=== PATIENT | male | born 1980 | race African-American/Black ===

== ENCOUNTER 2020-07-02 15:21 | Inpatient (IN) | payer OTHER ==
[~2020-07-02] VITALS: Ht 190.5 cm; Wt 145.6 kg
[2020-07-02] MEDS ORDERED: IV NS 0.9% 1,000 ML BAG IV ONE (15:30)
--- NOTE | 2020-07-02 15:30 | NUR ---
BIB [facility] C/O FEELING DIZZY AND L ARM NUMBNESS 30MIN, PATIENT A/OX4, BREATHING EVEN AND UNLABORED, STILL FEELING DIZZY, NUMBNESS AND TINGLING ON LEFT ARM. CHANGED INTO GOWN, ATTACHED TO THE BOATWRIGHT. NEEDS ATTENDED. DR. MONTANO AT BEDSIDE FOR EVAL.
[2020-07-02 15:44] LABS: BASOPHILS # (AUTO) 0.1 /CMM (0.0-0.2); EOSINOPHILS % (AUTO) 5.5 % (0.0-6.0); HEMATOCRIT 45 % (39-51); HEMOGLOBIN 14.7 g/dL (13.5-17.5); LYMPHOCYTES # (AUTO) 2.7 /CMM (0.8-4.8); LYMPHOCYTES % (AUTO) 39.6 % (20.0-44.0); MEAN CORPUSCULAR HGB CONC 33 g/dl (31.0-36.0); MEAN CORPUSCULAR VOLUME 93 fL (80-96); MONOCYTES # (AUTO) 0.7 /CMM (0.1-1.30); MONOCYTES % (AUTO) 9.7 % (2.0-12.0); NEUTROPHILS % (AUTO) 44.2 % (43.0-81.0); PLATELET COUNT (AUTO) 205 /CMM (150-450); RED BLOOD CELL COUNT(AUTO) 4.86 MIL/uL (4.5-6.0); WHITE BLOOD COUNT (AUTO) 6.9 K/uL (4.3-11.0)
--- NOTE | 2020-07-02 15:50 | NUR ---
PATIENT TRANSFERRED TO CT SCAN.
[2020-07-02 16:00] LABS: CALCIUM, SERUM 8.6 mg/dL (8.5-10.1); CREATININE 1.2 mg/dL (0.6-1.3); POTASSIUM 4.2 mmol/L (3.5-5.1)
[2020-07-02 16:12] LABS: ALBUMIN 3.7 g/dL (3.4-5.0); BILIRUBIN,DIRECT 0.1 mg/dL (0.0-0.2); BILIRUBIN,TOTAL 0.3 mg/dL (0.2-1.0); TOTAL PROTEIN, SERUM 7.6 g/dL (6.4-8.2)
--- NOTE | 2020-07-02 16:33 | NUR ---
PATIENT RESTING NO DISTRESS NOTED. VITALS STABLE.
[2020-07-02] MEDS ORDERED: METO25TA4 PO (18:23)
[2020-07-02] MEDS ORDERED: ATOR40TA PO (18:23)
[2020-07-02] MEDS ORDERED: LISI-603 PO (18:23)
[2020-07-02] MEDS ORDERED: ISOS30TA6 PO (18:23)
[2020-07-02] MEDS ORDERED: CLOP75TA15 PO (18:23)
[2020-07-02] MEDS ORDERED: ASPIRIN 81 MG TAB.CHEW PO ONE (19:00)
[2020-07-02] MEDS ORDERED: ASPIRIN 81 MG TAB.CHEW ONE (19:01)
--- NOTE | 2020-07-02 19:10 | NUR ---
ENDORSED TO ODETTE MOFFETT FOR SHERRI.
--- NOTE | 2020-07-02 19:16 | NUR ---
CALLED [facility], PAGED THEO DAY DNP
--- NOTE | 2020-07-02 19:42 | NUR ---
COVID SWAB SENT
[2020-07-02 20:07] LABS: CHOLESTEROL 147 mg/dL (<200); HDL CHOLESTEROL 51 mg/dL (40-60); LDL 80 mg/dL (0-99); TRIGLYCERIDES 90 mg/dL (30-150)
--- NOTE | 2020-07-02 21:23 | NUR ---
REPORT GIVEN TO MITCHEL MOFFETT FOR SHERRI PT WILL BE TRANSPORTED TO 3RD FLOOR
[2020-07-02 21:30] VITALS: BP 136/82
--- NOTE | 2020-07-02 21:30 | NUR ---
TOOL RENTAL TECHNICIAN ADMISSION OPENING NOTES RECEIVED PATIENT FROM ER AWAKE ALERT AND ORIENTED X4, RESPIRATIONS EVEN AND UNLABORED WITH EQUAL RISE AND FALL OF CHEST, STATE HE HAS ABD DISCOMFORT "LIKE GAS" AND IS REQUESTING FOR FOOD. IV SITE TO LEFT AC #18G INTACT AND PATENT, NO REDNESS NO INFILTRATION PRESENT, VS WNL, ON INFORMATION TECHNOLOGY TEACHER NOTED SB 55. PT STATES HE DOES NOT HAVE ANY WOUNDS OR SKIN ISSUES AND STAYED IN PERSONAL CLOTHES, BELONGINGS LIST DONE, PATIENT OFFERED SAFE FOR [employer] WALLET AND 10$ PREFERS TO KEEP WITH HIM, ORIENTED TO STAFF AND CALL LIGHT AND KEPT WITHIN REACH,SAFETY PRECAUTIONS RENDERED, LOW BED AND LOCKED, ALL NEEDS ATTENDED AT THIS TIME, WILL CONTINUE TO MONITOR AND AWAIT FOR MD ORDERS.
[2020-07-02 21:35] VITALS: BP 136/82
--- NOTE | 2020-07-02 22:19 | NUR ---
MEDIA PRODUCTION MANAGER NOTES MADE DR THEO DAY AWARE OF PATIENT C/O GAS ABD DISCOMFORT AND WANTS TO EAT, RECEIVED NEW ORDERS FOR SIMETHICONE 180MG TID PO AND CARDIAC DIET, READ BACK AND CARRIED OUT. SNACKS GIVEN TO PATIENT REQUESTED.FLUIDS OFFERED.
[2020-07-02] MEDS ORDERED: SIMETHICONE 80 MG TAB.CHEW PO SCH (22:30)
--- NOTE | 2020-07-02 22:45 | NUR ---
DIRECTOR OF MARKET INTELLIGENCE NOTES MADE MD AWARE MED RECON IS IN AND NEED SIMETHICONE CLARIFICATION DOSE, AWAITING ADMISSION ORDERS. AWAITING RESPONSE.
[2020-07-03] VITALS: BP 125/61
--- NOTE | 2020-07-03 00:10 | NUR ---
OPERATIONS GENERAL AGENT NOTES PATIENT APPEARS COMFORTABLE IS SLEEPING, TOLERATED SNACKS WELL.
[2020-07-03] MEDS ORDERED: ACETAMINOPHEN 325 MG TABLET PO PRN (01:00)
[2020-07-03] MEDS ORDERED: HYDROCODONE/APAP 5/325MG TABLET PO PRN (01:00)
[2020-07-03] MEDS ORDERED: ZOLPIDEM TARTRATE 5 MG TABLET PO PRN (01:00)
[2020-07-03] MEDS ORDERED: MAGNESIUM HYDROXIDE 30 ML UDC PO PRN (01:00)
[2020-07-03] MEDS ORDERED: MAG HYDROX/AL HYDROX/SIMETH 30 ML UDC PO PRN (01:00)
[2020-07-03] MEDS ORDERED: Z GUARD REMEDY 2 OZ OINT TP PRN (01:00)
[2020-07-03] MEDS ORDERED: ONDANSETRON HCL/PF 4 MG/2 ML VIAL IVP PRN (01:00)
[2020-07-03] MEDS: IV NS 0.9% 1,000 ML IV PRN (01:24)
--- NOTE | 2020-07-03 01:50 | NUR ---
made hospitalist aware of resulted troponin 0.044. no new orders,pt remains stable
[2020-07-03 04:00] VITALS: BP 132/87
[2020-07-03 04:31] VITALS: BP 132/87
--- NOTE | 2020-07-03 06:59 | NUR ---
FLYING I INSTRUCTOR CLOSING NOTES PATIENT AWAKE ALERT AND ORIENTED X4, RESPIRATIONS EVEN AND UNLABORED WITH EQUAL RISE AND FALL OF CHEST, IV SITE TO LEFT AC #18G INTACT AND PATENT, NO REDNESS NO INFILTRATION PRESENT, IVF RUNNING ORDERED VS WNL, ON SHIRT SEWER NOTED SB 55 AND SR 62 WITH OCCASIONAL PVC'S. PT STATES HE DOES NOT HAVE ANY WOUNDS OR SKIN ISSUES AND STAYED IN PERSONAL CLOTHES,PREFERS TO KEEP WALLET WITH HIM, CALL LIGHT KEPT WITHIN REACH,SAFETY PRECAUTIONS RENDERED, LOW BED AND LOCKED, ALL NEEDS ATTENDED AT THIS TIME, WILL CONTINUE TO MONITOR AND ENDORSE TO NEXT SHIFT, NO DISTRESS PRESENT. REMAINS COMFORTABLE.
[2020-07-03 07:30] LABS: BASOPHILS % (AUTO) 0.6 % (0.0-2.0); EOSINOPHILS % (AUTO) 7.1 % (0.0-6.0); HEMATOCRIT 43 % (39-51); HEMOGLOBIN 14.1 g/dL (13.5-17.5); LYMPHOCYTES # (AUTO) 2.5 /CMM (0.8-4.8); LYMPHOCYTES % (AUTO) 36.2 % (20.0-44.0); MEAN CORPUSCULAR HGB CONC 33 g/dl (31.0-36.0); MEAN CORPUSCULAR VOLUME 93 fL (80-96); MONOCYTES # (AUTO) 0.7 /CMM (0.1-1.30); MONOCYTES % (AUTO) 9.8 % (2.0-12.0); NEUTROPHILS # (AUTO) 3.3 /CMM (1.8-8.9); NEUTROPHILS % (AUTO) 46.3 % (43.0-81.0); PLATELET COUNT (AUTO) 205 /CMM (150-450)
--- NOTE | 2020-07-03 07:30 | NUR ---
HAZARDOUS MATERIALS TANKER DRIVER NOTES PT IN BED, AWAKE, ALERT AND ORIENTED, NO COMPLAINT OF PAIN, NOT IN DISTRESS, EATING BREAKFAST, STATED THAT HIS LEFT ARM IS BETTER TODAY, CALL LIGHT WITHIN REACH, NEEDS ATTENDED.
[2020-07-03 08:00] LABS: ALBUMIN 3.2 g/dL (3.4-5.0); BILIRUBIN,TOTAL 0.4 mg/dL (0.2-1.0); CALCIUM, SERUM 8.1 mg/dL (8.5-10.1); CREATININE 1.2 mg/dL (0.6-1.3); MAGNESIUM 2.1 mg/dL (1.8-2.4); PHOSPHORUS 3.7 mg/dL (2.5-4.9); POTASSIUM 4.2 mmol/L (3.5-5.1); TOTAL PROTEIN, SERUM 6.7 g/dL (6.4-8.2)
[2020-07-03] MEDS: ISOSORBIDE MONONITRATE (30MG) 30 MG TAB.SR.24H PO SCH (08:24)
[2020-07-03] MEDS: PANTOPRAZOLE 40 MG TABLET.DR PO SCH (08:25)
[2020-07-03] MEDS: LISINOPRIL (20MG) 20 MG TABLET PO SCH (08:25)
[2020-07-03] MEDS: METOPROLOL SUCCINATE 25 MG TAB.SR.24H PO SCH (08:25)
[2020-07-03] MEDS: CLOPIDOGREL BISULFATE 75 MG TABLET PO SCH (08:25)
[2020-07-03] MEDS: SIMETHICONE 80 MG TAB.CHEW PO SCH ×4 (08:25→17:00)
[2020-07-03] MEDS: ENOXAPARIN SODIUM 40 MG/0.4 ML DISP.SYRIN SQ SCH (08:32)
--- NOTE | 2020-07-03 10:18 | NUR ---
PARTS BACK COUNTER MAN NOTES PT IN BED, NO COMPLAINT AT THIS TIME, SEEN BY PHYSICAL THERAPIST, PT HAD FACE TIME WITH DR. REYES, PLAN OF CARE DISCUSSED WITH PT, VERBALIZED UNDERSTANDING.
[2020-07-03] MEDS ORDERED: IOHEXOL-350 100 ML VIAL IV ONE (10:58)
[2020-07-03] MEDS ORDERED: CT SWABBABLE VALVE TRANS SET 1 EA INFUS.SET MC ONE (10:59)
[2020-07-03] MEDS ORDERED: IV NS 0.9% 250 ML IV ONE (10:59)
[2020-07-03] MEDS: ASPIRIN EC 81 MG TABLET.DR PO SCH (12:47)
--- NOTE | 2020-07-03 19:04 | NUR ---
LEAD MECHANICAL ENGINEER NOTES PT IN BED, RESTING, NO COMPLAINT OF PAIN OR ANY DISCOMFORT, AMBULATES WITH STEADY GAIT, IV FLUIDS INFUSING WELL, CALL LIGHT WITHIN REACH, NEEDS ATTENDED.
--- NOTE | 2020-07-03 19:30 | NUR ---
BLENDING COORDINATOR OPENING NOTES RECEIVED PATIENT IN BED. A/OX4. TOLERATING ROOM AIR. RESPIRATIONS ARE EVEN AND UNLABORED. NO S/S SOB NOTED. NO C/O PAIN AT THIS TIME. EXTERNAL TELE MONITOR READS SINUS KATHY HR 55. IN NO APPARENT DISTRESS. IV ACCESS IN LAC#18 RUNNING NS@75ML/HR. BED IS LOW AND LOCKED, HOB ELEVATED IN SEMI FOWLERS, SIDE RIALS UP X2, CALL LIGHT WITHIN REACH. WILL CONTINUE TO MONITOR.
[2020-07-03 20:00] VITALS: BP 147/83
[2020-07-03 20:21] VITALS: BP 147/83
[2020-07-03] MEDS ORDERED: ATORVASTATIN 40 MG TABLET PO SCH (22:00)
[2020-07-04] VITALS: BP 137/83
[2020-07-04 00:39] VITALS: BP 137/83
[2020-07-04] MEDS: IV NS 0.9% 1,000 ML IV PRN (03:53)
[2020-07-04 04:00] VITALS: BP 137/83
[2020-07-04 04:28] VITALS: BP 130/74
[2020-07-04 06:24] LABS: BASOPHILS % (AUTO) 0.6 % (0.0-2.0); HEMATOCRIT 44 % (39-51); HEMOGLOBIN 14.5 g/dL (13.5-17.5); LYMPHOCYTES # (AUTO) 2.5 /CMM (0.8-4.8); LYMPHOCYTES % (AUTO) 34.9 % (20.0-44.0); MEAN CORPUSCULAR HGB CONC 33 g/dl (31.0-36.0); MEAN CORPUSCULAR VOLUME 93 fL (80-96); MONOCYTES # (AUTO) 0.7 /CMM (0.1-1.30); MONOCYTES % (AUTO) 9.9 % (2.0-12.0); NEUTROPHILS # (AUTO) 3.4 /CMM (1.8-8.9); NEUTROPHILS % (AUTO) 47.6 % (43.0-81.0); PLATELET COUNT (AUTO) 207 /CMM (150-450); RED BLOOD CELL COUNT(AUTO) 4.77 MIL/uL (4.5-6.0); WHITE BLOOD COUNT (AUTO) 7.1 K/uL (4.3-11.0)
[2020-07-04 06:36] LABS: THYROID STIMULATING HORMONE 4.172 uIU/mL (0.358-3.74)
[2020-07-04] MEDS: PANTOPRAZOLE 40 MG TABLET.DR PO SCH (06:44)
[2020-07-04 06:45] LABS: ALBUMIN 3.3 g/dL (3.4-5.0); BILIRUBIN,TOTAL 0.3 mg/dL (0.2-1.0); CALCIUM, SERUM 8.6 mg/dL (8.5-10.1); CREATININE 1.1 mg/dL (0.6-1.3); MAGNESIUM 2.1 mg/dL (1.8-2.4); PHOSPHORUS 3.8 mg/dL (2.5-4.9); TOTAL PROTEIN, SERUM 7.1 g/dL (6.4-8.2)
--- NOTE | 2020-07-04 06:59 | NUR ---
COMBINATION WELDER CLOSING NOTES PATIENT IN BED. A/OX4. REMAINS TOLERATING ROOM AIR. RESPIRATIONS ARE EVEN AND UNLABORED. NO RESP DISTRESS. NO C/O PAIN T/O SHIFT. EXTERNAL TELE MONITOR READS SINUS KATHY. LAST NIGHT THERE WAS AN EPISODE WHERE HR WENT DOWN TO 38.WILL INFORM ONCOMING SHIFT. PATIENT WAS WOKEN UP, STATED HE DID NOT FEEL DIZZY OR ANY DIFFERENT. NO DISTRESS. IV ACCESS IN LEFT HAND #20 RUNNING NS@75ML/HR. BED REMAINS LOW AND LOCKED, HOB ELEVATED IN SEMI FOWLERS, SIDE RIALS UP X2, CALL LIGHT WITHIN REACH. WILL ENDORSE TO NEXT SHIFT.
--- NOTE | 2020-07-04 07:15 | NUR ---
POLITICAL ADVISOR NOTES PATIENT IN BED ALERT ORIENTED X 4. NO ACUTE DISTRESS NOTED. BREATHING UNLABORED. NO SOB NOTED. IV ACCESS PATENT AND INTACT, NO REDNESS. NO BLEEDING NOTED. SAFETY MEASURES IN PLACE, CALL LIGHT WITHIN REACH. WILL CONTINUE TO MONITOR ACCORDINGLY.
[2020-07-04 08:34] VITALS: BP 136/83
[2020-07-04] MEDS: METOPROLOL SUCCINATE 25 MG TAB.SR.24H PO SCH (08:45)
[2020-07-04] MEDS: ISOSORBIDE MONONITRATE (30MG) 30 MG TAB.SR.24H PO SCH (08:45)
[2020-07-04] MEDS: SIMETHICONE 80 MG TAB.CHEW PO SCH ×3 (08:46→17:00)
[2020-07-04] MEDS: ASPIRIN EC 81 MG TABLET.DR PO SCH (08:47)
[2020-07-04] MEDS: ENOXAPARIN SODIUM 40 MG/0.4 ML DISP.SYRIN SQ SCH (08:47)
[2020-07-04] MEDS: LISINOPRIL (20MG) 20 MG TABLET PO SCH (08:48)
[2020-07-04] MEDS: CLOPIDOGREL BISULFATE 75 MG TABLET PO SCH (08:48)
[2020-07-04 13:10] LABS: APPEARANCE,URINE SL CLOUDY (CLEAR); BILIRUBIN,URINE NEGATIVE (NEGATIVE); BLOOD, URINE NEGATIVE Ery/uL (NEGATIVE); COLOR,URINE YELLOW (YELLOW); KETONES,URINE NEGATIVE (NEGATIVE); LEUKOCYTE ESTERASE ,URINE NEGATIVE (NEGATIVE); NITRITE, URINE NEGATIVE (NEGATIVE); PROTEIN,URINE NEGATIVE (NEGATIVE); UGLUCOSE NEGATIVE (NEGATIVE); UROBILINOGEN,URINE 0.2 EU/dL (0.2)
[2020-07-04] MEDS ORDERED: ASPI-1169 PO (13:41)
[2020-07-04] MEDS ORDERED: ATOR80TA PO (13:41)
[2020-07-04 16:25] VITALS: BP 139/101
--- NOTE | 2020-07-04 17:00 | NUR ---
DATA ENTRY SUPERVISOR NOTES PATIENT REFUSED MYLICON DESPITE OF EXPLANATION OF RISKS AND BENEFITS
--- NOTE | 2020-07-04 17:48 | NUR ---
PROCEDURAL NURSE NOTES PATIENT DISCHARGE HOME WITH STABLE VITAL SIGNS, ALERT ORIENTED X 4. NO ACUTE DISTRESS NOTED. BREATHING UNLABORED. NO SOB NOTED. IV ACCESS REMOVED, NO REDNESS. NO BLEEDING, NO SWELLING NOTED. DISCHARGE INSTRUCTIONS GIVEN TO THE PATIENT INCLUDING NEW PRESCRIPTION AND FOLLOW UP MD APPOINTMENTS, VERBALIZED UNDERSTANDING. PATIENT WITH MISSING SHIRT, PROVIDED POLO SHIRT TO THE PATIENT AND PATIENT GAVE HIS CONTACT INFORMATION ONCE THE SHIRT IS FOUND AND UPDATE REGARDING MISSING SHIRT, CHARGE NURSE AND PILLOWCASE MAKER FATEMEH AWARE. PATIENT REFUSED BODY ASSESSMENT DESPITE OF EXPLANATION OF RISKS AND BENEFITS. ASSISTED TO THE LOBBY, PICKED UP VIA PRIVATE CAR IN STABLE CONDITION.
[2020-07-05 18:22] LABS: *CARD ANTI-CARDIOLIPIN AB IgA <9 APL U/mL (0-11); *CARD ANTI-CARDIOLIPIN AB IgG <9 GPL U/mL (0-14); *CARD ANTI-CARDIOLIPIN AB IgM <9 MPL U/mL (0-12)
[2020-07-06 11:06] LABS: *ANTITHROMBIN III AG 85 % (72-124); *DILUTE PROTHROMBIN TIME (dPT) 31.2 sec (0.0-55.0); *THROMBIN TIME 20.5 sec (0.0-23.0); *dPT CONFIRM RATIO 0.74 Ratio (0.00-1.40); PROTEIN C ACTIVITY 110 % (73-180)
== END 2020-07-04 18:03 | disposition home or self-care (01) | DRG 65 ==
LOC: ER 15:33 → TELE 21:15
PROVIDERS: ADMIT Hospitalist; ATTEND Nurse Practitioner Acute Care
DX: I63.9 Cerebral infarction, unspecified (principal); Z68.41 Body mass index [BMI] 40.0-44.9, adult; E86.0 Dehydration; E66.9 Obesity, unspecified; E78.5 Hyperlipidemia, unspecified; I25.10 Atherosclerotic heart disease of native coronary artery without angina pectoris; R20.2 Paresthesia of skin; I50.9 Heart failure, unspecified; Z86.73 Personal history of transient ischemic attack (TIA), and cerebral infarction without residual deficits; I11.0 Hypertensive heart disease with heart failure; Z95.5 Presence of coronary angioplasty implant and graft; R13.10 Dysphagia, unspecified; Z79.02 Long term (current) use of antithrombotics/antiplatelets; Z79.899 Other long term (current) drug therapy; G93.89 Other specified disorders of brain; M48.02 Spinal stenosis, cervical region; R40.2412 Glasgow coma scale score 13-15, at arrival to emergency department
CPT/HCPCS: 36415; 70450-TC; 70496-TC; 70498-TC; 71045-TC; 72125-TC; 80048-TC; 80053-TC; 80061-TC; 80076-TC; 80305; 81000-TC; 83735-TC; 83880; 84100-TC; 84443-TC; 84484-TC; 85025-TC; 85300; 85301; 85303; 85613; 85652-TC; 85670; 85705; 85730-TC; 85732; 86147; 87081-TC; 93307-TC; 93880-TC; 97116-TC; 97530-TC; C9803-CS; G0378; J1650; J7030; J7050; Q9967